=== PATIENT | female | born 1960 | race Caucasian/White ===

== ENCOUNTER 2025-02-20 12:01 | Emergency (ER) | payer BC, SELFPAY ==
[2025-02-20 12:20] VITALS: BP 166/81; PULSE 100; RESP 18; TEMP 36.9; O2SAT 100
--- NOTE | 2025-02-20 13:47 | ED.GENADULT ---
HPI - General Adult General Chief complaint: Upper Respiratory Infection Stated complaint: sore throat Time Seen by Provider: 02/20/25 13:36 Source: patient and RN notes reviewed Mode of arrival: ambulatory Limitations: no limitations History of Present Illness HPI narrative: 64-year-old female patient presents today complaining of white coating on her tongue and burning in her throat for the last couple days it. She was recently on to course of cefdinir for a cyst in her neck area and sinusitis. She has no additional complaints. No OTC treatment prior to arrival. Related Data Home Medications ?Medication ?Instructions ?Recorded ?Confirmed ?Last Taken ?Type ipratropium bromide 0.02 % 02/20/25 Unknown History solution for inhalation lorazepam 0.5 mg tablet mg 02/20/25 Unknown History nifedipine 30 mg tablet,extended mg PO 02/20/25 Unknown History release 24 hr omeprazole 40 mg capsule,delayed mg 02/20/25 Unknown History release simvastatin 10 mg tablet mg 02/20/25 Unknown History Allergies Allergy/AdvReac Type Severity Reaction Status Date / Time lisinopril Allergy Unknown Verified 02/20/25 12:24 Sulfa (Sulfonamide Allergy unknown Verified 02/20/25 12:24 Antibiotics) PMFSH Comments At time of signature, I have reviewed and agree with nursing past medical, surgical, social and family history unless otherwise noted. Please see nursing chart for further information. There is no relevant family history pertinent to the presenting complaint Exam Narrative: GENERAL: Well-appearing, well-nourished, and in no acute distress. HEAD: Normocephalic, atraumatic. EYES: EOMI. No redness or drainage. Conjunctivae normal. ENT: Mucous membranes pink and moist. Throat normal. Uvula midline. Tongue has a thin coating of white a on mildly erythematous base. No white lesions to the inner cheeks or palate. NECK: Normal AROM. Supple. No lymphadenopathy. CHEST: No respiratory distress. EXTREMITIES: Normal range of motion. No edema. SKIN: Warm, dry, no rash. Capillary refill normal. Normal skin turgor. NEURO: No focal deficits. Alert and oriented x3. Gait steady. PSYCH: Normal affect. No signs of depression or anxiety. Course Course Level of Care: Express Care Visit Vital Signs Vital signs: Vital Signs Temperature 98.5 F 02/20/25 12:20 Pulse Rate 100 02/20/25 12:20 Respiratory Rate 18 02/20/25 12:20 Blood Pressure 166/81 H 02/20/25 12:20 Pulse Oximetry 100 02/20/25 12:20 Oxygen Delivery Room Air 02/20/25 12:20 Temperature 98.5 F 02/20/25 12:20 Pulse Rate 100 02/20/25 12:20 Respiratory Rate 18 02/20/25 12:20 Blood Pressure 166/81 H 02/20/25 12:20 Pulse Oximetry 100 02/20/25 12:20 Oxygen Delivery Room Air 02/20/25 12:20 Reviewed Medical Decision Making MDM Narrative Medical decision making narrative: 64-year-old female patient presents today complaining of white coating on her tongue and burning in her throat for the last couple days it. She was recently on to course of cefdinir for a cyst in her neck area and sinusitis. She has no additional complaints. No OTC treatment prior to arrival. Upon exam, patient has a thin coating of white on her tongue on a mildly erythematous base. Will treat with nystatin for thrush. Patient agrees with plan. Vital signs stable. Anticipatory guidance given. Differential Diagnosis Differential Diagnosis: Thrush, leukoplakia, strep throat Vital Signs Vital Signs: Vital Signs Temperature 98.5 F 02/20/25 12:20 Pulse Rate 100 02/20/25 12:20 Respiratory Rate 18 02/20/25 12:20 Blood Pressure 166/81 H 02/20/25 12:20 Pulse Oximetry 100 02/20/25 12:20 Oxygen Delivery Room Air 02/20/25 12:20 Temperature 98.5 F 02/20/25 12:20 Pulse Rate 100 02/20/25 12:20 Respiratory Rate 18 02/20/25 12:20 Blood Pressure 166/81 H 02/20/25 12:20 Pulse Oximetry 100 02/20/25 12:20 Oxygen Delivery Room Air 02/20/25 12:20 Critical Care Time Critical Care Time Critical Care Time: No Discharge Plan Discharge Clinical Impression: Oral thrush Patient Disposition: Home Condition: Stable Instructions: Oral Candidiasis (ED) Additional Instructions: Please use the nystatin as directed. Follow-up with your PCP with any additional concerns. Patient Language: Bahamian Prescriptions: New nystatin 100,000 unit/mL suspension 5 ml PO QID 10 Days Qty: 200 0RF Rx Instructions: swish and swallow No Action nifedipine 30 mg tablet extended release 24hr PO simvastatin 10 mg tablet omeprazole 40 mg capsule,delayed release(DR/EC) lorazepam 0.5 mg tablet ipratropium bromide 0.02 % solution Follow-up/Referrals: UNKNOWN,DOCTOR [Primary Care Provider] Time of Disposition: 13:52
--- OUTSIDE RECORDS SUMMARY | 2025-02-20 13:56 | XMS_ITS | Encounter Summary ---
Author Organization [facility] Address [address] [facility] [facility] [place] [address] Phone Care Team Providers Care Planner Chief Name Role Phone Isabella Taylor MD Primary Care Provider [phone] Encounter Details Date Type Department Care Team (Late st Contact Info) Description 12/22/2024 Results Follow-Up [address] [place], [place] [phone] Isabella Taylor MD [address] [place] [address] [facility] IMAGING RESULTS Social History Tobacco Use Types Packs/Day Years Used Date Smoking Tobacco: Every Day Cigarettes Smokeless Tobacco: Never Alcohol Use Standard Drinks/Week Comments Never 0 (1 standard drink = 0.6 oz pur e alcohol) [facility] Utilities Answer Date Recorded In the past 12 months has [employer], gas, oil, or water [employer] threatened to shut off services in your home? No 05/02/2024 Social Connection and Isolation Panel Answer Date Recorded In a typical week, how many times do you talk on the phone with family, friends, or neighbors? More than three times a week 05/02/2024 How often do you get togethe r with friends or relatives? Never 05/02/2024 Attends Bahai Services Not on file 05/02 Do you belong to any clubs o r organizations such as restoration groups, unions, fraternal or athletic groups, or school groups? No 05/02/2024 How often do you attend meet ings of the clubs or organizations you belong to? Never 05/02/2024 Are you , , di vorced, , never , or living with a partner? 05/02/2024 AUDIT-C Answer Date Recorded Q1: How often do you have a drink containing alcohol? Never 05/02/2024 Q2: How many drinks containi ng alcohol do you have on a typical day when you are drinking? Patient does not drink Q3: How often do you have si x or more drinks on one occasion? Never 05/02/2024 Overall Financial Resource Strain (CARDIA) Answe r Date Recorded How hard is it for you to pa y for the very basics like food, housing, medical care, and heating? Somewhat hard 05/02/2024 PHQ-2 Answer Date Recorded Total Score - Questions 1-9 0 06/2024 [facility] of Occupat ional [facility] - Occupational Stress Questionnaire Answer Date Recorded Do you feel stress - tense, restless, nervous, or anxious, or unable to sleep at night because your mind is troubled all the time - these days? To some extent 05/02/2024 Exercise Vital Sign Answer Date Recorde d On average, how many days pe r week do you engage in moderate to strenuous exercise (like a brisk walk)? 0 days 05/02/2024 On average, how many minutes do you engage in exercise at this level? 0 min 05/02/2024 Hunger Vital Sign Answer Date Recorded Within the past 12 months, y ou worried that your food would run out before you got the money to buy more. Sometimes true Within the past 12 months, t he food you bought just didn't last and you didn't have money to get more. Sometimes true 05/2024 PRAPARE - Transportation Answer Date Re corded In the past 12 months, has l ack of transportation kept you from medical appointments or from getting medications? No 05/2024 In the past 12 months, has l ack of transportation kept you from meetings, work, or from getting things needed for daily living? No 05/02/2024 Housing Stability Vital Sign Answer [place]am [place] Recorded In the last 12 months, was t here a time when you were not able to pay the mortgage or rent on time? No 05/02/2024 Number of Times Moved in the Last Year Not on fi le 05/02/2024 At any time in the past 12 m [facility], were you homeless or living in a correction (including now)? No 05/02/2024 Comments No Sex and Gender Information Value Date Recorded Sex Assigned at Female 04/20/2024 3:40 PM GREY ROLL WORKER Legal Sex Female 10:47 AM CDT Gender Identity Female 12/06/2024 2:59 PM CDT Sexual Orientation Not on file documented as of this encounter Plan of Treatment Upcoming Encounters Date Type Department Care Team (Late st Contact Info) Description 05/04/2025 1:00 PM GREY ROLL WORKER Office Visit [facility] [address] [place], [place] [phone] Isabella Taylor MD [address] [place], [place] documented as of this encounter Visit Diagnoses Not on filedocumented in this encounter Additional Health Concerns Assessment Noted Time PHQ-9 Depression Total Score: 0 12/02/19 25 2:00 PM CDT documented as of this encounter Care Teams Planner Chief Relationship Specialty Start Date End Date Isabella Taylor MD [address] [address] [place], [place] PCP - General Emergency Medicine 09/17/23 documented as of this encounter
--- OUTSIDE RECORDS SUMMARY | 2025-02-20 13:56 | XMS_ITS | Clinical Summary ---
Author Organization [facility] Address [address] [place] [address] Care Team Providers Care Elevated Guard Name Role Phone Stevie Desouza MD Unavailable [phone] Isabella Taylor MD Primary Care Provider [phone] Allergies Active Allergy Reactions Criticality Noted Date Comments Losartan Rash Medium 12/09/2022 Prednisone Anxiety Low 12/01/2021 Sulfa (Sulfonamide Antibiotics) Swelling Medium 06/2021 Medications LORazepam (ATIVAN) 0.5 mg tablet Take 1 tablet (0.5 mg total) by mouth every 6 (six) hours as needed for anxiety Active losartan-hydroC HLOROthiazide (HYZAAR) 50-12.5 mg per tablet Take 1 tablet by mouth daily Active sertraline (ZOLOFT) 100 mg tablet Take 1 tablet (100 mg total) by mouth daily 2 Active albuterol HFA (PROVENTIL HFA,VENTOLIN HFA,PROAIR HFA) 90 mcg/actuation inhaler Inhale 2 puffs every 6 (six) hours as needed Active calcium carbonate (TUMS) 1,250 mg (500 mg elemental) chewable tablet Take 1 tablet (1,250 mg total) by mouth daily Active meclizine (ANTIVERT) 25 mg tablet 3 Active nystatin cream APPLY TOPICALLY TO THE AFFECTED AREA TWICE DAILY NEEDED 3 Active Nystop powder 3 Active simvastatin (ZOCOR) 10 mg tablet Take 1 tablet (10 mg total) by mouth daily 3 Active carvediloL (COREG) 3.125 mg tablet Take 1 tablet (3.125 mg total) by mouth 2 (two) times a day 3 Active hydroCHLOROthia zide (HYDRODIURIL) 25 mg tablet Take 1 tablet (25 mg total) by mouth every morning 3 Active Active Problems Problem Noted Date Diagnosed Date Finger pain, left 12/09/2022 Chronic pain of both knees 07/12/2022 Lumbar radiculopathy 06/07/2022 Sacroiliitis 05/03/2022 Spondylosis of lumbar region without myelopathy or radiculopathy 01/29/2022 Low back pain 01/29/2022 Amputation, finger, 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 Overview (12/01/2021): Added automatically from request for surgery [id number] Open displaced fracture of p roximal phalanx of left little finger, initial encounter 12/01/2021 PTSD (post-traumatic stress disorder) 09/16/2021 Depression 09/11/2021 Anxiety 09/04/2021 Immunizations Immunization Administration Dates Next Due Influenza, Trivalent, IM (MDV) 12/30/2012 Pneumococcal Polysaccharide PPV23 12/30/2012 Tdap 12/01/2021 Surgical History Surgery Date Site/Laterality Comments FINGER SURGERY 5th finger reattachment and fracture CHOLECYSTECTOMY TONSILLECTOMY GANGLION CYST EXCISION Right GLAUCOMA SURGERY Bilateral Medical History Medical History Date Comments Hypertension GERD (gastroesophageal reflux disease) Mid back pain Low back pain Sleep apnea Anxiety Left knee pain Right hip pain Arthritis Glaucoma Low back pain Family History Medical History Relation Name Comments Cancer Father COPD Mother Diabetes Mother Hypertension Mother Lung disease Mother Relation Name Status Comments Father Mother Social History Tobacco Use Types Packs/Day Years Used Date Smoking Tobacco: Every Day Cigarettes 1 40 Smokeless Tobacco: Never Tobacco Cessation:Ready to Q uit: Not Asked; Counseling Given: Not Answered Comments:Smoking cessation information given Alcohol Use Standard Drinks/Week Comments Not Currently 0 (1 standard drink = 0.6 oz pur e alcohol) Social Connection and Isolation Panel Answer Date Recorded In a typical week, how many times do you talk on the phone with family, friends, or neighbors? Once a week 07/23/2022 How often do you get together with friends or re latives? Never 07/23/2022 How often do you attend jain or sikhism serv ices? Never 07/23/2022 Active Member of Clubs or Organizations Not on f ile 07/23/2022 How often do you attend meet ings of the clubs or organizations you belong to? Never 07/23/2022 Are you , , di vorced, , never , or living with a partner? 07/23/2022 AUDIT-C Answer Date Recorded Q1: How often do you have a drink containing alcohol? Never 07/11/2022 Q2: How many drinks containi ng alcohol do you have on a typical day when you are drinking? Patient does not drink Q3: How often do you have si x or more drinks on one occasion? Never 07/11/2022 Overall Financial Resource Strain (CARDIA) Answe r Date Recorded How hard is it for you to pa y for the very basics like food, housing, medical care, and heating? Very hard 07/23/2022 Hunger Vital Sign Answer Date Recorded Within the past 12 months, y ou worried that your food would run out before you got the money to buy more. Often true 07/24/19 23 Within the past 12 months, t he food you bought just didn't last and you didn't have money to get more. Often true 07/23/2022 PRAPARE - Transportation Answer Date Re corded In the past 12 months, has l ack of transportation kept you from medical appointments or from getting medications? Yes 06/29 In the past 12 months, has l ack of transportation kept you from meetings, work, or from getting things needed for daily living? Yes 07/23/2022 Housing Stability Vital Sign Answer Rustam e Recorded In the last 12 months, was t here a time when you were not able to pay the mortgage or rent on time? Yes 07/23/2022 In the last 12 months, how many places have you lived? 3 07/23/2022 In the last 12 months, was t here a time when you did not have a steady place to sleep or slept in a nursing home (including now)? Yes 07/23/2022 Comments No Sex and Gender Information Value Date Recorded Sex Assigned at Not on file Legal Sex Female 6:28 PM CDT Gender Identity Not on file Sexual Orientation Not on file Last Filed Vital Signs Vital Sign Reading Time Taken Comments Blood Pressure 141/72 07/11/2022 3:03 PM CDT Pulse 90 07/11/2022 3:01 PM CDT Temperature 36.6 C (97.8 F) 07/11/2022 1:35 PM CDT Respiratory Rate 18 07/11/2022 3:01 PM CDT Oxygen Saturation 100% 07/11/2022 3:01 PM CDT Inhaled Oxygen Concentration - - Weight 72.6 kg (160 lb) 07/11/2022 1:35 PM CDT Height 170.2 cm (5' 7) 07/11/2022 1:35 PM CDT Body Mass Index 25.06 07/11/2022 1:35 PM CDT Plan of Treatment Health Maintenance Due Date Last Done Comments Breast Cancer Screening-Mammogram 1961 Cervical Cancer Screening 1961 Colon Cancer Screening-Colonoscopy 1961 Depression Screening 1961 Hepatitis C Screening 1961 Hepatitis B Screening 09/28/1979 Regular Well Visit/Exam 18-64 09/28/1979 Zoster Vaccine (1 of 2) 09/28/2011 Pneumococcal vaccine <65 (2 of 2 - PCV) 12/30/2013 1 Influenza Vaccine (#1) 2024 12/30/2012 DTaP/Tdap/Td Vaccine (2 - Td or Tdap) 12/02/203106/2021 Goals Goal Patient Goal Type Associated Problems Recent Progress Patient-Stated? Author CCM Chronic Pain Care Plan Chronic Care Management Improving( 1:39 PM CDT) No Ev Dominguez, RN Note: Problem: Chronic Pain Goals: 1. Minimize further functional decline 2. Maximize quality of life 3. Control pain Strategies: - Activity/exercise program recommendation - Conservative stepwise pain medicine strategy with multi-disciplinary approach - Recommend healthy lifestyle strategies and compensatory methods as needed Medical Devices Implanted Type Area Bench Carpenter Device Identifier Shelf Expiration Date Model / Serial / Lot [employer] Chio .035in 4in [place] Both Ends Orthopedic Wire [id number] - [id number] Implanted:Qty: 1 on 12/02/2021 by Stevie Hutchison MD at [facility] Left: Little Finger [employer] [id number] / / [employer] K Wire Fix [place] Bth End Ss [id number] [id number] - [id number] Implanted:Qty: 1 on 12/02/2021 by Stevie Hutchison MD at [facility] Left: [place]inger [employer] DUP [id number] / / [employer] Chio .035in 4in [place] Both Ends Orthopedic Wire 1600-435ns - [id number] Implanted:Qty: 1 on 12/02/2021 by Stevie Hutchison MD at [facility] Left: Little Finger [employer] [id number] / / Insurance [facility] Advance Directives For more information, please contact: [phone] * Full Code (Latest Code Status on File) Date Activated Date Inactivated Comments 12/02/2021 8:00 AM 12/02/2021 8:04 PM Care Teams Elevated Guard Relationship Specialty Start Date End Date Isabella Taylor MD [address] [place] [address] PCP - General Family Practice 12/12/21 Stevie Desouza MD Referring Physician Orthopedic Surgery 12/02/21
--- OUTSIDE RECORDS SUMMARY | 2025-02-20 13:56 | XMS_ITS | Encounter Summary ---
Author Organization [facility] Address [address] [facility] [address] Phone Care Team Providers Care Greenkeeper Name Role Phone Isabella Taylor MD Primary Care Provider [phone] Reason for Visit * Reason Comments Medication Refill Encounter Details Date Type Department Care Team (Late st Contact Info) Description 12/30/[address] [place], [place] [phone] Isabella Taylor MD [address] [place] [address] Medication Refill Social History Tobacco Use Types Packs/Day Years Used Date Smoking Tobacco: Every Day Cigarettes Smokeless Tobacco: Never Alcohol Use Standard Drinks/Week Comments Never 0 (1 standard drink = 0.6 oz pur e alcohol) [facility] Utilities Answer Date Recorded In the past 12 months has [employer] electric, gas, oil, or water [employer] threatened to shut off services in your home? No 05/02/2024 Social Connection and Isolation Panel Answer Date Recorded In a typical week, how many times do you talk on the phone with family, friends, or neighbors? More than three times a week 05/02/2024 How often do you get togethe r with friends or relatives? Never 05/02/2024 Attends Worship Services Not on file 05/02 Do you belong to any clubs o r organizations such as denominational groups, unions, fraternal or athletic groups, or [...] Total Score - Questions 1-9 0 06/2024 [facility] of Occupat ional [facility] - Occupational Stress Questionnaire Answer Date Recorded [...] any time in the past 12 m [facility], were you homeless or living in a halfway (including now)? No 05/02/2024 Comments No Sex and Gender Information Value Date Recorded Sex Assigned at Female 04/20/2024 3:40 PM JOINERY SETTER OUT Legal Sex Female 10:47 AM CDT Gender Identity Female 12/06/2024 2:59 PM CDT Sexual Orientation Not on file documented as of this encounter Miscellaneous Notes * Telephone Encounter - Isabella Taylor MD - 01/03/2025 1:08 [address] CDT [address] her CT chest and neck approved & has she been scheduled? * Telephone Encounter - Isabella Taylor MD - 01/03/2025 1:07 PM CDT Lorazepam refill sent. documented in this encounter Plan of Treatment Upcoming Encounters Date Type Department Care Team (Late st Contact Info) Description 05/04/2025 1:00 PM JOINERY SETTER OUT Office Visit [facility] [address] [place], [place] [phone] Isabella Taylor MD [address] [place], [place] documented as of this encounter Visit Diagnoses Diagnosis Generalized anxiety disorder documented in this encounter Additional Health Concerns Assessment Noted Time PHQ-9 Depression Total Score: 0 12/02/19 25 2:00 PM CDT documented as of this encounter Care Teams Greenkeeper Relationship Specialty Start Date End Date Isabella Taylor MD [address] [place] [phone] PCP - General Emergency Medicine 09/17/23 documented as of this encounter
--- OUTSIDE RECORDS SUMMARY | 2025-02-20 13:56 | XMS_ITS | Clinical Summary ---
Author Organization [facility] Address [address] [place] [address] Phone Care Team Providers Care Fish Hatchery Superintendent Name Role Phone Isabella Taylor MD Primary Care Provider [phone] Allergies Active Allergy Reactions Criticality Noted Date Comments Atenolol Other (see Comments) 03/28/2024 Abdominal pain Chlorthalidone Other (see Comments) 03/28/2024 Dehydration, syncope Corticosteroids Anxiety,Unknown Low 09/02/2021 ( ) Hydralazine Vomiting 03/28/2024 Lisinopril Swelling 03/28/2024 Losartan Itching,Rash,Swelli ng Medium 12/09/2022 Metoprolol Nausea,Vomiting 03/28/2024 Other-Environmental Allergen (Not Found In Search) Other (see Comments) 11/01/2024 Glucocorticoid Spironolactone Unknown 03/28/2024 Sulfa Antibiotics Swelling Medium 12/01/2021 Sulfamethoxazole-Trimetho prim Unknown 03/28/2024 Medications ketoconazole (NIZORAL) 2 % Cream Apply. Apply 1 to 2 times daily to the affected area of ears until clear. Active Latanoprost PF (Iyuzeh) 0.005 % Solution Active meclizine (ANTIVERT) 25 MG Tablet Take 25 mg by mouth 3 times daily as needed. 06/06/19 Active nystatin (MYCOSTATIN) 741383 UNIT/GM Cream Apply 2 times daily as needed. Apply topically to the affected area twice daily as needed 03/07/20 23 Active traMADol (ULTRAM) 50 MG Tablet Take 50 mg by mouth. Take 1 tablet 4 times a day by oral route as needed 05/26/19 24 Active tretinoin (RETIN-A) 0.05 % Cream Apply. Active famotidine (PEPCID) 20 MG TabletIndications :Gastroesophageal reflux disease without esophagitis Take 1 Tablet by mouth 2 times daily. 180 Tablet 1 10/19/19 25 Active ProAir HFA 108 (90 Base) MCG/ACT Aerosol SolutionIndicatio ns:Moderate persistent reactive airway disease without complication take 2 Puffs by inhalation every 4 hours as needed for Wheezing or Cough. Every 4 to 6 hours by inhalation route as needed. 18 g 5 11/02/19 25 Active ipratropium (ATROVENT) 0.02 % SolutionIndicatio ns:Moderate persistent reactive airway disease without complication 2.5 mL by Nebulization route every 6 hours as needed for Wheezing. 125 mL 1 11/02/19 25 Active nystatin 251305 UNIT/GM PowderIndications :Candidiasis of skin Apply 3 times daily as needed for Other. 60 g 5 11/02/19 25 Active verapamil (CALAN-SR) 120 MG Tablet Controlled ReleaseIndication s:Essential hypertension Take 2 Tablets by mouth daily. For Blood Pressure 180 Tablet 1 11/08/19 25 Active Additional Information Patient taking differently: 120 mgOral DAILY, For Blood Pressure*per pt went back to taking 120 mg d/t felt B/P dropped to low. 01/24/25cv, Reported on 01/24/2025 rosuvastatin (CRESTOR) 5 MG TabletIndications :Stenosis of right carotid artery,Mixed hyperlipidemia Take 1 Tablet by mouth nightly. 30 Tablet 12/02/19 25 Active LORazepam (ATIVAN) 0.5 MG TabletIndications :Generalized anxiety disorder TAKE 1 TABLET BY MOUTH EVERY DAY NEEDED FOR ANXIETY 30 Tablet 01/04/20 25 Active omeprazole (PriLOSEC) 40 MG CAPSULE DELAYED RELEASE Take 40 mg by mouth daily as needed. 025 Discontinu ed(Med List Clean Up) cefdinir (OMNICEF) 300 MG CapsuleIndication s:Other non-recurrent acute nonsuppurative otitis media of left ear Take 1 Capsule by mouth 2 times daily for 10 days. 20 Capsule 01/25/20 25 025 Discontinu ed(Reorder ) cefdinir (OMNICEF) 300 MG CapsuleIndication s:Other non-recurrent acute nonsuppurative otitis media of left ear Take 1 Capsule by mouth 2 times daily for 10 days. 20 Capsule 02/03/20 25 025 Active Problems Problem Noted Date Diagnosed Date Body mass index (BMI) 29.0-29.9, adult 5 Stenosis of right carotid artery 12/02/2024 Assessment & Plan (12/02/2024 1:28 PM CDT): - near 50% stenosis SELENA per doppler 11/15/24. - Rx rosuvastatin 5 mg qd #30 (trial). - advised baby ASA daily. - advised smoking cessation. - maintain cholesterol & bp control. - repeat carotid doppler in 1 yr. Mass of soft tissue of chest 12/02/2024 Assessment & Plan (12/02/2024 1:25 PM CDT): - order CXR and mammogram (due 09/21). - will likely need CT chest with contrast. - CBC 11/04/24 reviewed (polycythemia, otherwise wnl). Low back pain 10/19/2024 Trigger little finger of left hand 05/02/2024 Assessment & Plan (05/02/2024 2:25 PM MICA SPLITTER): - refer to hand surgeon in/near [place], [place]. Bunion of great toe of right foot 05/02/2024 Assessment & Plan (05/02/2024 2:26 PM MICA SPLITTER): - refer to podiatry in/near [place], [place]. Vitamin D deficiency 05/02/2024 B12 deficiency 05/02/2024 Assessment & Plan (12/02/2024 1:47 PM CDT): - level 319 11/04/24. - advised to start B complex supplement, which she has not started yet (but plans on starting soon). Obesity 05/02/2024 Assessment & Plan (12/02/2024 1:47 PM CDT): - BMI 30.9. - Reinforced healthy lifestyle modifications including healthy eating, increased physical activity and proper sleep. Goal BMI 18.5-24.9. Assessment & Plan (05/02/2024 2:28 PM MICA SPLITTER): - BMI 31.4. - Reinforced healthy lifestyle modifications including healthy eating, increased physical activity and proper sleep. Goal BMI 18.5-24.9. Attention deficit hyperactivity disorder 024 Essential hypertension 03/28/2024 Assessment & Plan (12/02/2024 1:49 PM CDT): - above goal in office. - labile bp in clinical environment. - home readings reassuring, 120s-130s/70s. - intolerant of multiple antihypertensives. - continue verapamil ER 240 mg qd. - continue monitoring bp regularly (several times/week at least). Assessment & Plan (05/02/2024 2:28 PM MICA SPLITTER): - above goal. - increase verapamil XR from 120 to 240 mg qd. - check bp daily, keep log. Call office to review log in 2 wks. - check labs. Hyperlipidemia 03/28/2024 Assessment & Plan (12/02/2024 1:30 PM CDT): - chol 236, TG 225, HDL 38, LDL 153, chol-hdl 6.2. - historically has declined statin therapy, but agreeable to try given recent carotid findings. - Rx rosuvastatin 5 mg qhs #30. - Advised low cholesterol (<200mg/d)/high fiber (>25g/d) diet and moderate- intensity exercise x >30 min 5 days/week. Chronic back pain 03/28/2024 Overview (03/28/2024): L4/5 paracentral/foraminal disc protrusion, lumbar stenosis, spondylolisthesis Assessment & Plan (12/02/2024 1:44 PM CDT): - DDD with L4/5 paracentral/foraminal disc protrusion, lumbar stenosis, spondylolisthesis, spondylosis & scoliosis. - h/o LESI x 3 in past. - refer to pain mgmt. Chronic neck pain 03/28/2024 Assessment & Plan (12/02/2024 1:48 PM CDT): - continue PT at [facility] in [place]. - refer to pain mgmt. Spondylolisthesis of lumbar region 03/28/2024 Overview (03/28/2024): L1 on L2 Reactive airway disease 03/28/2024 Spinal stenosis of lumbar region 03/28/2024 Tobacco user 03/28/2024 Overview (03/28/2024): 1/2 ppd x >40 yrs Assessment & Plan (12/02/2024 1:48 PM CDT): - 1/2 ppd x 40+ yrs. - Encouraged cessation. Discussed health risks associated with smoking including, but not limited to, cardiovascular dz, pulm dz and increased risk of cancer. 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 - refer to sleep medicine. Glaucoma 05/26/2015 Resolved Problems Problem Noted Date Diagnosed Date Resolved Date Overweight with body mass in dex (BMI) 25.0-29.9 03/28/2024 05/02/2024 Encounters Date Type Department Care Team Description 02/15/2025 Telephone [facility] [address] [place], [place] [phone] Isabella Taylor MD 02/10/2025 Telephone [facility] [address] [place] [place] [phone] Isabella Taylor MD 02/02/2025 Refill [facility] [address] [place], [place] [phone] Isabella Taylor MD Medication Refill 01/24/2025 10:00 AM CDT Office Visit [facility] [address] [place], [place] [phone] Isabella Taylor MD Other non-recurrent acute nonsuppurative otitis media of left ear (Primary Dx) 01/24/2025 Travel 01/23/2025 Telephone [facility] [address] [place], [place] [phone] Isabella Taylor MD 12/30/2024 Refill [facility] [address] [place], [place] [phone] Isabella Taylor MD Medication Refill 12/22/2024 Results Follow-Up [facility] [address] [place] [phone] Isabella Taylor MD [facility] IMAGING RESULTS 12/14/2024 Telephone [facility] [address] [place] [phone] sIabella Taylor MD 12/12/2024 Telephone [facility] [address] [place] [phone] Isabella aTylor MD 12/02/2024 [facility] [address] [place] [phone] Isabella Taylor MD 12/01/2024 4:15 PM CDT - 12/01/2024 11:59 PM CDT Hospital Encounter [facility] Diagnostic Radiology [address] [place] [phone] Isabella Taylor MD Discharge Disposition: Discharged to home or Selfcare 12/01/2024 2:30 PM CDT Office Visit [facility] [address] [place] [phone] Isabella Taylor MD Mass of soft tissue of chest (Primary Dx); Stenosis of right carotid artery; Mixed hyperlipidemia; Chronic neck pain; Left cervical radiculopathy; Lumbar radiculopathy; Chronic low back pain, unspecified back pain laterality, unspecified whether sciatica present; Essential hypertension; Tobacco user; Osteoarthritis of spine with radiculopathy, lumbar region; Chronic midline low back pain, unspecified whether sciatica present; B12 deficiency; Class 1 obesity due to excess calories with serious comorbidity and body mass index (BMI) of 30.0 to 30.9 in adult 12/01/2024 Travel 11/29/2024 Telephone [facility] [address] [place] [phone] Isabella Taylor MD from Last 3 Months Immunizations Immunization Administration Dates Next Due Influenza, Seasonal, Injectable, Undefined 12/30 Pneumococcal Vaccine Adult - 23 Valent 10/03/201 3 TDAP Vaccine 12/01/2021 Family History Medical History Relation Name Comments Cancer Father carcinoma of ur inary bladder superficial Arthritis Mother Chronic Obstructive Pulmonar y Disease Mother Diabetes Mother Gout Mother Hypertension Mother other Sister sclerodermatomy ositis Relation Name Status Comments Father Maternal Grandfather Maternal Grandmother Mother Paternal Grandfather Paternal Grandmother Sister Social History Tobacco Use Types Packs/Day Years Used Date Smoking Tobacco: Every Day Cigarettes Smokeless Tobacco: Never Tobacco Cessation:Ready to Q uit: No; Counseling Given: Yes Alcohol Use Standard Drinks/Week Comments Never 0 (1 standard drink = 0.6 oz pur e alcohol) [facility] Utilities Answer Date Recorded In the past 12 months has e electric, gas, oil, or water company threatened to shut off services in your home? No 05/02/2024 Social Connection and Isolation Panel Answer Date Recorded In a typical week, how many times do you talk on the phone with family, friends, or neighbors? More than three times a week 05/02/2024 How often do you get togethe r with friends or relatives? Never 05/02/2024 Attends Islam Services Not on file 05/02 Do you belong to any clubs o r organizations such as mormon groups, unions, fraternal or athletic groups, or [...] Recorded Total Score - Questions 1-9 0 10/2 10/2024 [facility] - Occupational Stress Questionnaire Answer Date Recorded [...] any time in the past 12 m [facility], were you homeless or living in a long-term (including now)? No 05/02/2024 AUDIT-C Answer Date Recorded Q1: How often do you have a drink containing alcohol? Never 01/24/2025 Q2: How many drinks containi ng alcohol do you have on a typical day when you are drinking? Patient does not drink Q3: How often do you have si x or more drinks on one occasion? Never 01/24/2025 Comments No Sex and Gender Information Value Date Recorded Sex Assigned at Female 04/20/2024 3:40 PM MICA SPLITTER Legal Sex Female 10:47 AM CDT Gender Identity Female 12/06/2024 2:59 PM CDT Sexual Orientation Not on file Last Filed Vital Signs Vital Sign Reading Time Taken Comments Blood Pressure 150/78 01/24/2025 10:41 AM CDT Pulse 99 01/24/2025 10:07 AM CDT Temperature 37 C (98.6 F) 01/24/2025 10:07 AM CDT Respiratory Rate 20 01/24/2025 10:0 7 AM CDT Oxygen Saturation 98% 01/24/2025 10: 07 AM CDT Inhaled Oxygen Concentration - - Weight 88.8 kg (195 lb 12.8 oz) 025 10:07 AM CDT Height 170.2 cm (5' 7) 01/24/2025 10:0 7 AM CDT Body Mass Index 30.67 01/24/2025 10:07 AM CDT Plan of Treatment Upcoming Encounters Date Type Department Care Team (Late st Contact Info) Description 05/04/2025 1:00 PM MICA SPLITTER Office Visit [address] [phone] Isabella Taylor MD [address] [place] [address] Health Maintenance Due Date Last Done Comments Hepatitis C Virus (HCV) Screening 1961 HPV/Cotest 09/28/1991 Cologuard 2006 Colonoscopy 2006 Colorectal Cancer Screening 2006 Immunochemical Fecal Occult Blood 2006 Cervical Cancer Screening (CCS) 11/15/2024 Pap Smear 11/15/2024 11/15/2021 Pneumococcal Immunization (50+ years) (2 of 2 - PCV) 11/01/2025 12/30/2012 Postponed fro m 12/30/2013 (Patient Temporarily Declines) Zoster Immunization (1 of 2) 11/01/2025 Postponed from 09/28/2011 (Patient Temporarily Declines) Influenza Immunization (#1) 2025 12/30/2012 Postponed from 11/28/2024 (Patient Temporarily Declines) SARS-COV-2 Immunization (1 - season) 2025 Postponed from 11/28/2024 (Patient Temporarily Declines) Mammogram 12/08/2025 12/08/2024, 12/08/2024, 09/08/2023, Additional history exists Td Immunization Every 10 Years (Adults With 1 Tdap) 12/02/2031 12/01/2021 Respiratory Syncytial Virus (RSV) Immunization (Adult) (1 - 1-dose 75+ series) 2036 Pneumococcal Immunization Combined Discontinued 12/30/2012 TdaP Immunization Discontinued 12/01/2021 Hepatitis B Immunization Aged Out No longer eligible based on patient's age to complete this topic Human Papillomavirus (HPV) Immunization Aged Out No longer eligible based on patient's age to complete this topic Meningococcal Immunization (ACWY) Aged Out No longer eligible based on patient's age to complete this topic Rotavirus Immunization Aged Out No lo nger eligible based on patient's age to complete this topic Procedures Procedure Name Priority Date/Time Associated Diagnosis Comments XR CHEST 2 VIEWS Routine 12/01/2024 4:25 PM CDT Mass of soft tissue of chest from Last 3 Months Results * XR CHEST 2 VIEWS (12/01/2024 4:25 PM CDT) Anatomical Region Laterality Modality Chest N/A Computed Radiogr aphy Narrative 12/01/2024 4:57 PM CDT XR CHEST 2 VIEWS CLINICAL HISTORY: Other specified soft tissue disorders COMPARISON: None TECHNIQUE: Frontal and lateral view of the chest was obtained FINDINGS: Lines and Tubes: None Lungs: No focal consolidation. 9 cm calcified granuloma left upper lobe.m Pleura: No effusion. No pneumothorax. Cardiomediastinal contours: Unremarkable Bones: No acute osseous abnormality. IMPRESSION: No acute cardiopulmonary disease. SPLITTER Procedure Note Frankie Orantes MD - 12/01/2024 XR CHEST 2 VIEWS CLINICAL HISTORY: Other specified soft tissue disorders COMPARISON: None TECHNIQUE: Frontal and lateral view of the chest was obtained FINDINGS: Lines and Tubes: None Lungs: No focal consolidation. 9 cm calcified granuloma left upperlobe.m Pleura: No effusion. No pneumothorax. Cardiomediastinal contours: Unremarkable Bones: No acute osseous abnormality. IMPRESSION: No acute cardiopulmonary disease. SPLITTER Isabella Taylor MD IMG DIAGNOSTIC ORDERABLES F inal Result from Last 3 Months Insurance MEDICAID [employer] MEDICAID [place] Advance Directives Documents on File Type Date Recorded Patient Dredge Lever Operator Expl anation Other Advance Directive 05/02/2024 2:37 PM POA Advance Care Planning Discussion 03/01/2024 1:17 PM BCBS correspondence Care Teams Fish Hatchery Superintendent Relationship Specialty Start Date End Date Isabella Taylor MD [address] [place] [phone] (work) PCP - General Emergency Medicine 09/17/23
--- OUTSIDE RECORDS SUMMARY | 2025-02-20 13:56 | XMS_ITS | Encounter Summary ---
Author Organization [facility] Address [address] [place] [address] Phone Care Team Providers Care Skiver Welt End Name Role Phone Isabella Taylor MD Primary Care Provider [phone] Encounter Details Date Type Department Care Team (Late st Contact Info) Description 02/15/2025 Telephone [facility] [address] [place], [place] [phone] Isabella Taylor MD [address] [place], [place] Social History Tobacco Use Types Packs/Day Years Used Date Smoking Tobacco: Every Day Cigarettes Smokeless Tobacco: Never Alcohol Use Standard Drinks/Week Comments Never 0 (1 standard drink = 0.6 oz pur e alcohol) [facility] Utilities Answer Date Recorded In the past 12 months has [employer], gas, oil, or water [employer] threatened to shut off services in your [...] any clubs o r organizations such as shinto groups, unions, fraternal or athletic groups, or [...] Recorded Total Score - Questions 1-9 0 12/29 [facility] - [facility]ational Stress Questionnaire Answer Date [...] any time in the past 12 m [facility], were you homeless or living in a retirement (including now)? No 05/02/2024 AUDIT-C Answer Date [...] Sex Assigned at Female 04/20/2024 3:40 PM FRUIT PACKER Legal Sex Female 10:47 AM CDT Gender Identity Female 12/06/2024 2:59 PM CDT Sexual Orientation Not on file documented as of this encounter Miscellaneous Notes * Telephone Encounter - Estephanie Walter LPN - 02/17/2025 10:57 AM FRUIT PACKER Phoned patient informed on provider message verbalized just left the neuro office and is going to go take care of her disabled sister and plans on going to Urgent Care in [place] to be evaluated. Informed will relay on to provider, voiced understanding. T PACKER * Telephone Encounter - Isabella Taylor MD - 02/16/2025 5:27 PM FRUIT PACKER Given recent abx use, she may have thrush, which is why she needs to be seen. Abx will only make worse if thrush. If she is not able to go to urgent care, I will send fluconazole, but I would rather she be evaluated if possible. T PACKER * Telephone Encounter - Estephanie Walter LPN - 02/16/2025 1:58 PM FRUIT PACKER Patient reports still having pain to left ear, not as bad as it was and noticing swelling is comingback, verbalized her throat is still really sore way down the back of throat when swallows and backof neck. Denies any fever, reports waking up sweating. Informed on providers message voiced understanding. Patient requesting results of recent test done, noted in chart under imaging. Informed will relay on to provider to address voiced understanding. T PACKER T PACKER T PACKER * Telephone Encounter - Isabella Taylor MD - 02/16/2025 1:29 PM FRUIT PACKER Pls call pt and get more information - she has already had 2 rounds of antibiotics for sinus infection and is now requesting a 3rd. Can she go to urgent care locally to be evaluated? T PACKER * Telephone Encounter - Jennifer Garrett - 02/15/2025 10:08 AM CST Pt left vm asking if she should get another round of antibiotics until she sees the ENT. Pt stated she thinks she still has an infection because she still has a bit of pain. T PACKER documented in this encounter Plan of Treatment Upcoming Encounters Date Type Department Care Team (Late st Contact Info) Description 05/04/2025 1:00 PM FRUIT PACKER Office Visit [place] [address] [place], [place] [phone] Isabella Taylor MD [address] [address] [place], [place] documented as of this encounter Visit Diagnoses Not on filedocumented in this encounter Additional Health Concerns Assessment Noted Time PHQ-9 Depression Total Score: 0 01/25/20 25 10:00 AM CDT documented as of this encounter Care Teams Skiver Welt End Relationship Specialty Start Date End Date Isabella Taylor MD [address] [place] [phone] PCP - General Emergency Medicine 09/17/23 documented as of this encounter
--- OUTSIDE RECORDS SUMMARY | 2025-02-20 13:56 | XMS_ITS | Encounter Summary ---
Author Organization [facility] Address [address] [place] [address] Phone Care Team Providers Care Screener And Blender Name Role Phone Isabella Taylor MD Primary Care Provider [phone] Encounter Details Date Type Department Care Team (Late st Contact Info) Description 07/05/[address] [facility] [address] [place], [place] [phone] Isabella Taylor MD [address] [place], [place] Social History Tobacco Use Types Packs/Day Years Used Date Smoking Tobacco: Every Day Cigarettes Smokeless Tobacco: Never Alcohol Use Standard Drinks/Week Comments Never 0 (1 standard drink = 0.6 oz pur e alcohol) [facility] Utilities Answer Date Recorded In the past 12 months has [employer] gas, oil, or water fypio threatened to shut off services in your home? No 05/02/2024 Social Connection and Isolation Panel Answer Date Recorded In a typical week, how many times do you talk on the phone with family, friends, or neighbors? More than three times a week 05/02/2024 How often do you get togethe r with friends or relatives? Never 05/02/2024 Attends Spiritism Services Not on file 05/02 Do you belong to any clubs o r organizations such as cheondoism groups, unions, fraternal or athletic groups, or [...] Recorded Total Score - Questions 1-9 0 05/2024 [facility] - Occupational Stress Questionnaire Answer Date [...] any time in the past 12 m [facility], were you homeless or living in a intermediate (including now)? No 05/02/2024 Comments No Sex and Gender Information Value Date Recorded Sex Assigned at Female 04/20/2024 3:40 PM CITY PLANNER Legal Sex Female 10:47 AM CDT Gender Identity Female 12/06/2024 2:59 PM CDT Sexual Orientation Not on file documented as of this encounter Miscellaneous Notes * Telephone Encounter - Estephanie Walter LPN - 07/05/2024 4:48 PM CDT Phoned patient informed on Dr Taylor's new orders voiced understanding. * Telephone Encounter - Isabella Taylor MD - 07/05/2024 4:18 PM CDT There are several muscle relaxants we can try. Thus far, she has tried cyclobenzaprine and orphenadrine. I'm going to send tizanidine for her. Unfortunately, a lot of muscle relaxants have sedation and dizziness as a side effect, so advise caution. Also advise she try topical magnesium - they make l otions and oils. Apply to affected areas. Her pharmacy likely carries. * Telephone Encounter - Tania Alvarado LPN - 07/05/2024 2:32 PM CDT Phoned patient to talk about referral and she wanted to let you know that she is starting to have muscle spasms again and stated she uses a chair that has the roller balls in it to try and help her and rolls tennis balls on her feet. She also stated that last time it took 1 week for them to calm down. She also states that she will start getting them worse in the summer. She stated that the Cyclobenzaprine you gave her for them did not work and made her dizzy. She is wanting to know if there is something else she can take for them? She states that if there is nothing else she can take then PT is the only other option that seems to help her and if that is the way she needs to go then she willprobably need a new referral for that. documented in this encounter Plan of Treatment Upcoming Encounters Date Type Department Care Team (Late st Contact Info) Description 05/04/2025 1:00 PM CITY PLANNER Office Visit [facility] [address] [place], [place] [phone] Isabella Taylor MD [address] [place], [place] documented as of this encounter Visit Diagnoses Not on filedocumented in this encounter Additional Health Concerns Assessment Noted Time PHQ-9 Depression Total Score: 0 05/02/19 25 1:16 PM CITY PLANNER documented as of this encounter Care Teams Screener And Blender Relationship Specialty [place] [address] [place] [address] PCP - General Emergency Medicine 09/17/23 documented as of this encounter
--- OUTSIDE RECORDS SUMMARY | 2025-02-20 13:56 | XMS_ITS | Clinical Summary ---
Author Organization [facility] [employer] Address [address] [place] [address] Care Team Providers Care Baseball Inspector Name Role Phone Isabella Taylor MD Primary Care Provider [phone] Rajni Harris AUTOMATIC QUILLING MACHINE OPERATOR-PINNER PR[employer]ED CIRCUIT BOARDS Unavailable [phone] Rajni Harris AUTOMATIC QUILLING MACHINE OPERATOR-PINNER PR[employer]ED CIRCUIT BOARDS Unavailable [phone] Source Comments [facility],non-owned Affiliates and Associated Physician Practices is amultiple site organization consisting of ambulatory clinics and hospital sitesin [place], [place], [place] and [place]. This disclosure is being madepursuant to the Care Everywhere program and may not contain all information available regarding this patient. Last updated 17.[facility] Allergies Active Allergy Reactions Criticality Noted Date Comments Losartan Itching,Swelling 08/31/2023 Prednisone Unknown 09/02/2021 ( ) Sulfa Drugs Unknown 09/02/2021 ( ) Medications * Be aware that medications may not be up to date on this document. Alwaysverify current medications with the patient. albuterol HFA (PROVENTIL; VENTOLIN; PROAIR) 108 (90 Base) MCG/ACT inhaler Inhale 2 (two) puffs by mouth every 6 hours as needed Active LORazepam (Ativan) 0.5 MG tablet Take 0.5 (one-half) tablet by mouth 2 times daily as needed for Anxiety 14 tablet 2 2 Active hydroCHLOROthia zide (Hydrodiuril) 25 MG tablet Take 1 (one) tablet by mouth once daily Active omeprazole (PriLOSEC) 20 MG capsule Take 1 (one) capsule by mouth daily before breakfast Active Active Problems Problem Noted Date Diagnosed Date PTSD (post-traumatic stress disorder) 09/16/2021 Depression 09/11/2021 Anxiety 09/04/2021 Immunizations Immunization Administration Dates Next Due INFLUENZA VACCINE, TRIV. (AF LURIA, FLUZONE TRIVALENT; 6MO+) (IIV3) 12/30/2012 PNEUMOCOCCAL PPSV23 12/30/2012 Family History Medical History Relation Name Comments Cancer - Other Father Asthma Mother Diabetes; unknown type Mother Hyperlipidemia Mother Hypertension Mother Thyroid Disease Mother Thyroid Disease Sister Relation Name Status Comments Father Mother Sister Social History Tobacco Use Types Packs/Day Years Used Date Smoking Tobacco: Every Day Cigarettes Tobacco Cessation:Ready to Q uit: Not Asked; Counseling Given: Not Answered Alcohol Use Standard Drinks/Week Comments Not Currently 0 (1 standard drink = 0.6 oz pur e alcohol) PHQ-2 Answer Date Recorded Patient Health Questionnaire-2 Score 0 08/31/2023 Comments Unknown Sex and Gender Information Value Date Recorded Sex Assigned at Not on file Legal Sex Female 8:11 AM CDT Gender Identity Not on file Sexual Orientation Not on file Last Filed Vital Signs Vital Sign Reading Time Taken Comments Blood Pressure 129/85 08/31/2023 2:32 PM CDT Pulse 101 08/31/2023 2:21 PM CDT Temperature 36.3 C (97.3 F) 08/31/2023 2:21 PM CDT Respiratory Rate 20 08/31/2023 2:21 PM CDT Oxygen Saturation 95% 08/31/2023 2:21 PM CDT Inhaled Oxygen Concentration - - Weight 86.6 kg (191 lb) 08/31/2023 2:21 PM CDT Height 170.2 cm (5' 7) 08/31/2023 2:21 PM CDT Body Mass Index 29.91 08/31/2023 2:21 PM CDT Plan of Treatment Health Maintenance Due Date Last Done Comments COLOGUARD (AGES 45-75) - COLON CA SCREENING 1961 COLON MONITORING 1961 COLONOSCOPY - COLON CA SCREENING 1961 CT COLONOGRAPHY - COLON CA SCREENING 1961 Colorectal Cancer Screening 1961 FIT - COLON CA SCREENING 1961 FLEX SIG - COLON CA SCREENING 1961 LIPID TESTING 1961 MAMMOGRAM 1961 HIV SCREENING 1976 HEPATITIS C SCREENING 09/23/1979 DTAP/TDAP/TD VACCINES (1 - Tdap) 1980 PAP with HPV 09/28/1991 ZOSTER VACCINE (1 of 2) 09/28/2011 PNEUMOCOCCAL VACCINE 50+ (2 of 2 - PCV) 12/30/2013 12/30/2012 DEPRESSION SCREENING 03/30/2024 08/31/2023, 11/27/2021, 11/25/2021, Additional history exists SCREENING FOR DIABETES 09/02/2024 09/02/2021 Cervical Cancer Screening 11/15/2024 PAP SMEAR 11/15/2024 11/15/2021 COVID-19 VACCINE ( - season) 2024 INFLUENZA VACCINE (#1) 2024 12/30/2012 Respiratory Syncytial Virus (RSV) Vaccine Pt: or over 60 yrs (1 - 1-dose 75+ series) 2036 HEPATITIS B VACCINE Aged Out No longe r eligible based on patient's age to complete this topic HIB VACCINE Aged Out No longer eligi ble based on patient's age to complete this topic HPV VACCINE Aged Out No longer eligi ble based on patient's age to complete this topic MENINGOCOCCAL (Group B) VACCINE SHARED DECISION-MAKING Aged Out No longer eligible based on patient's age to complete this topic MENINGOCOCCAL GROUPS A/C/Y/W VACCINE Aged Out No longer eligible based on patient's age to complete this topic Procedures Procedure Name Priority Date/Time Associated Diagnosis Comments COMPREHENSIVE METABOLIC PANEL STAT 09/02/2021 4:15 PM CDT from Last 3 Months or Most Recently Relevant to Health Maintenance Results * (ABNORMAL) COMPREHENSIVE METABOLIC PANEL (09/02/2021 4:15 PM CDT) Glucose 109(H) 70 - 100 mg/dL 09/02/2021 4:48 PM CDT [facility] ([facility]) BUN 10 7 - 17 mg/dL 09/02/2021 4:48 PM [facility] Creatinine 0.90 0.52 - 1.04 mg/dL 09/02/2021 4:48 PM [facility] Sodium 141 137 - 145 mmol/L 09/02/2021 4:48 PM [facility] Potassium 3.6 3.5 - 5.1 mmol/L 09/02/2021 4:48 PM [facility]) Chloride 107 98 - 107 mmol/L 09/02/2021 4:48 PM [facility]) CO2 25 22 - 30 mmol/L 09/02/2021 4:48 PM [facility]) Bilirubin Total 0.1(L) 0.2 - 1.3 mg/dL 09/02/2021 4:48 PM [facility]) Calcium 9.2 8.4 - 10.2 mg/dL 09/02/2021 4:48 PM [facility]) Protein Total 7.3 6.3 - 8.2 g/dL 09/02/2021 4:48 PM [facility]) Albumin 4.3 3.5 - 5.0 g/dL 09/02/2021 4:48 PM [facility] AST 26 14 - 36 U/L 09/02/2021 4:48 PM [facility]) ALT 23 0 - 35 U/L 09/02/2021 4:48 PM [facility] Alkaline Phosphatase 78 38 - 126 U/L 09/02/2021 4:48 PM [facility]) Globulin Total 3.0 2.3 - 4.2 gm/dL 09/02/2021 4:48 PM [facility]) Albumin/Globulin Ratio 1.4 1.0 - 2.2 Ratio 09/02/2021 4:48 PM [facility]) eGFR >60 >60 mL/min/1.7 3 m2 09/02/2021 4:48 PM [facility]) Blood BLOOD SPECIMEN / Unknown Venipuncture / Unknown 09/02/2021 4:15 PM CDT 09/02/2021 4:19 PM CDT Narrative [facility] ([facility]) - 09/02/2021 4:48 PM CDT It is recommended that for: GFR values greater than 60 mL/min/1.73 sq.meters - no additional renal evaluation is required. GFR values less than 60 mL/min/1.73 sq.meters - complete evaluation for renal disease. GFR values less than 30 mL/min/1.73 sq.meters - consultation with a Marketing Project Lead. us Марина Chun AUTOMATIC QUILLING MACHINE OPERATOR-PINNER PR[employer]ED [employer]AR[employer] LAB - CHEMISTRY ORDER MARLON Final Result [facility] ([facility]) [address] [place] [phone] from Last 3 Months or Most Recently Relevant to Health Maintenance Insurance [place] Care Teams Baseball Inspector Relationship Specialty Start Date End Date Isabella Taylor MD PCP - General Emergency Medicine 08/30/21 Rajni Harris, [employer] [address] [place] [address] Nurse Practitioner Nurse Practitioner Psychiatric Mental Health 09/16/21 Rajni Harris, [employer] [address] [place] [address] Nurse Practitioner Nurse Practitioner Psychiatric Mental Health 11/25/21
--- OUTSIDE RECORDS SUMMARY | 2025-02-20 13:56 | XMS_ITS | Encounter Summary ---
Author Organization [facility] Address [address] [place] [address] Care Team Providers Care University Teacher Name Role Phone Stevie Desouza MD Unavailable [phone] Isabella Taylor MD Primary Care Provider [phone] Reason for Visit * Reason Onset Date Comments Handicap Parking Application 03/26/2022 Encounter Details Date Type Department Care Team (Late st Contact Info) Description 03/26/2022 Telephone [facility] [address] [facility] [address] [place] [address] Rich Zepeda, DO [address] [place], [place] [id number] Handicap Parking Application Social History Tobacco Use Types Packs/Day Years Used Date Smoking Tobacco: Every Day Cigarettes 1 40 Smokeless Tobacco: Never Comments:Smoking cessation i nformation given Alcohol Use Standard Drinks/Week Comments Not Currently 0 (1 standard drink = 0.6 oz pur e alcohol) AUDIT-C Answer Date Recorded Q1: How often do you have a drink containing alcohol? Never 01/28/2022 Q2: How many drinks containi ng alcohol do you have on a typical day when you are drinking? Patient does not drink Q3: How often do you have si x or more drinks on one occasion? Never 01/28/2022 Comments Unknown Sex and Gender Information Value Date Recorded Sex Assigned at Not on file Legal Sex Female 6:28 PM CDT Gender Identity Not on file Sexual Orientation Not on file documented as of this encounter Plan of Treatment Not on file documented as of this encounter Goals Goal Patient Goal Type Associated Problems [...] lifestyle strategies and compensatory methods as needed documented as of this encounter Visit Diagnoses Not on filedocumented in this encounter Care Teams University Teacher Relationship Specialty Start Date End Date Isabella Taylor MD [address] [place] [address] PCP - General Family Practice 12/12/21 Stevie Desouza MD Referring Physician Orthopedic Surgery 12/02/21 documented as of this encounter
--- OUTSIDE RECORDS SUMMARY | 2025-02-20 13:56 | XMS_ITS | Encounter Summary ---
Author Organization [facility] Address [address] [place] [address] Phone Care Team Providers Care Deli Department Manager Name Role Phone Stevie Desouza MD Unavailable [phone] Isabella Taylor MD Primary Care Provider [phone] Encounter Details Date Type Department Care Team (Latest Contact Info) Description 01/03/2022 Orders Only [facility] Scanning, Provider Social History Tobacco Use Types Packs/Day Years Used Date Smoking Tobacco: Every Day Cigarettes 0.1 40 Smokeless Tobacco: Never Alcohol Use Standard Drinks/Week Comments Not Currently 0 (1 standard drink = 0.6 oz pur e alcohol) AUDIT-C Answer Date Recorded Q1: How often do you have a drink containing alc ohol? Never 12/02/2021 Average Number of Drinks Not on file 022 Frequency of Binge Drinking Not on file 07/2021 Comments Unknown Sex and Gender Information Value Date Recorded Sex Assigned at Not on file Legal Sex Female 6:28 PM CDT Gender Identity Not on file Sexual Orientation Not on file documented as of this encounter Plan of Treatment Not on file documented as of this encounter Procedures Procedure Name Priority Date/Time Associated Diagnosis Comments SCAN - RADIOLOGY/IMAGING 01/03/2022 documented in this encounter Results * SCAN - RADIOLOGY/IMAGING (01/03/2022) Anatomical Region Laterality Modality Other us Provider Scanning Edited Result - Final documented in this encounter Visit Diagnoses Not on filedocumented in this encounter Care Teams Deli Department Manager Relationship Specialty Start Date End Date Isabella Taylor MD [address] [place] [address] PCP - General Family Practice 12/12/21 Stevie Desouza MD Referring Physician Orthopedic Surgery 12/02/21 documented as of this encounter
--- OUTSIDE RECORDS SUMMARY | 2025-02-20 13:56 | XMS_ITS | Clinical Summary ---
Author Organization [facility] Address [address] [place] [address] Care Team Providers Care Safe Expert Name Role Phone Miriam Paiz MD Primary Care Provider [phone] Active Problems Problem Noted Date Diagnosed Date Low back pain 10/19/2024 Lumbar radiculopathy 10/19/2024 Encounters Date Type Department Care Team Description 02/06/2025 9:13 AM INFORMATION SYSTEMS PLANNER - 02/06/2025 11:59 PM INFORMATION SYSTEMS PLANNER [place] [address] [place] [address] Miriam Paiz MD Discharge Disposition: Home or Self Care (Routine Discharge) 02/06/2025 Travel 01/11/2025 8:45 AM CDT - 01/11/2025 11:59 PM CDT Hospital Encounter [facility] [address] [place] [address] Sadie Frazier, Miriam Bundy MD Back Pain Discharge Disposition: Home or Self Care (Routine Discharge) 01/11/2025 Travel 01/09/2025 8:00 AM CDT - 01/09/2025 11:59 PM CDT Hospital Encounter [facility] [address] [place] [address] Harlan Sumner, Miriam Bundy MD Back Pain Discharge Disposition: Home or Self Care (Routine Discharge) 01/09/2025 Travel 01/06/2025 1:56 PM CDT - 01/06/2025 11:59 PM CDT Hospital Encounter [facility] [address] [place] [address] Sadie Frazier, Miriam Bundy MD Back Pain Discharge Disposition: Home or Self Care (Routine Discharge) 01/06/2025 Travel 12/30/2024 Travel 12/28/2024 11:15 AM CDT - 12/28/2024 11:59 PM CDT Hospital Encounter [facility] [address] [place] [address] Sadie Frazier, Miriam Bundy MD Back Pain Discharge Disposition: Home or Self Care (Routine Discharge) 12/28/2024 Travel 12/27/2024 12:55 PM CDT - 12/27/2024 11:59 PM CDT Hospital Encounter [facility] Laboratory [address] [place] [phone] Miriam Paiz MD Discharge Disposition: Home or Self Care (Routine Discharge) 12/27/2024 Orders Only [facility] [address] [place] [address] Miriam Paiz MD 12/26/2024 3:07 PM CDT - 12/26/2024 11:59 PM CDT Hospital Encounter [facility] [address] [place] [address] Sadie Frazier, Miriam Bunyd MD Back Pain Discharge Disposition: Home or Self Care (Routine Discharge) 12/26/2024 Travel 12/21/2024 10:23 AM CDT - 12/21/2024 11:59 PM CDT Hospital Encounter [facility] [address] [place] [address] Sadie Frazier, Miriam Bundy MD Back Pain Discharge Disposition: Home or Self Care (Routine Discharge) 12/21/2024 Travel 12/19/2024 1:43 PM CDT - 12/19/2024 11:59 PM CDT Hospital Encounter [facility] [id number] [place] [address] Harlan Sumner, Miriam Bundy MD Back Pain Discharge Disposition: Home or Self Care (Routine Discharge) 12/19/2024 Travel 12/16/2024 10:56 AM CDT - 12/16/2024 11:59 PM CDT Hospital Encounter [facility] [address] [place] [phone] Harlan Sumner, Miriam Bundy MD Back Pain Discharge Disposition: Home or Self Care (Routine Discharge) 12/16/2024 Travel 12/12/2024 9:26 AM CDT - 12/12/2024 11:59 PM CDT Hospital Encounter [facility] [address] [place] [phone] Sadie Frazier, Miriam Bundy MD Back Pain Discharge Disposition: Home or Self Care (Routine Discharge) 12/12/2024 Travel 12/08/2024 1:10 PM CDT - 12/08/2024 11:59 PM CDT Hospital Encounter [facility] Mammography [id number] [place] [address] Miriam Paiz MD Discharge Disposition: Home or Self Care (Routine Discharge) 12/08/2024 Travel 11/21/2024 7:27 AM CDT - 11/21/2024 11:59 PM CDT Hospital Encounter [facility] [address] [place] [address] Harlan Sumner, Miriam Bundy MD Back Pain Discharge Disposition: Home or Self Care (Routine Discharge) 11/21/2024 Travel from Last 3 Months Family History Medical History Relation Comments Breast Cancer Maternal Aunt Relation Status Comments Maternal Aunt Alive Social History Tobacco Use Types Packs/Day Years Used Date Smoking Tobacco: Never Assessed Comments Unknown Sex and Gender Information Value Date Recorded Sex Assigned at Not on file Legal Sex Female 9:37 PM CDT Gender Identity Not on file Sexual Orientation Not on file Plan of Treatment Health Maintenance Due Date Last Done Comments ASCVD Statin 1960 Colorectal Cancer Screening Colonoscopy (10 Years) 1960 Annual Physical 1964 Hepatitis C 09/28/1979 Cervical Cancer Screening Pa p with HPV Testing (Age 30 to 64) Every 5 Years 09/28/1991 Zoster Vaccines (1 of 2) 09/28/2011 Pneumococcal Vaccine: 50+ Ye ars (2 of 2 - PCV) 12/30/2013 12/30/2012 PHQ-2 (Physician [place]) 03/30/2024 Cervical Cancer Screening Pa p Smear (Age 30 to 64) Every 3 Years 11/15/2024 11/15/2021 Cervical Cancer Screening with HPV 11/15/2024 COVID-19 Vaccine (1 - 2024-2 6 season) 2024 Influenza Adult (#1) 2024 12/30/2012 Mammogram Screening 12/08/2026 12/08/2024 DTaP, Tdap and Td Vaccines ( 2 - Td or Tdap) 12/02/2031 12/01/2021 RSV Immunization or 60+ Years (1 - 1-dose 75+ series) 2036 Hepatitis A Vaccines Aged Out No long er eligible based on patient's age to complete this topic Meningococcal B Vaccine Aged Out No l onger eligible based on patient's age to complete this topic Meningococcal Vaccine Aged Out No juliette krista eligible based on patient's age to complete this topic RSV Immunizations Under 20 Months Aged Out No longer eligible based on patient's age to complete this topic Procedures Procedure Name Priority Date/Time Associated Diagnosis Comments CT SOFT TISSUE NECK W CON Routine 02/06/2025 10:10 AM INFORMATION SYSTEMS PLANNER Mass of soft tissue of neck CT CHEST W CON Routine 02/06/2025 10:09 AM INFORMATION SYSTEMS PLANNER Mass of soft tissue of neck HC CREATININE Routine 12/27/2024 1:08 PM CDT Essential hypertension HC BUN Routine 12/27/2024 1:08 PM CDT Essential hypertension MG SCREENING W ASUNCION JOSE ANGEL DIGI Routine 12/08/2024 1:58 PM CDT Encounter for screening mammogram for malignant neoplasm of breast CYTOPATH CERV/VAG THIN LAYER Routine 11/15/2021 12:00 AM CDT from Last 3 Months or Most Recently Relevant to Health Maintenance Results * CT SOFT TISSUE NECK W CON (02/06/2025 10:10 AM INFORMATION SYSTEMS PLANNER) Anatomical Region Laterality Modality Neck Computed Tomogra phy 02/07/2025 2:05 PM INFORMATION SYSTEMS PLANNER Impressions 02/07/2025 2:27 PM INFORMATION SYSTEMS PLANNER IMPRESSION: 1. Nonspecific 1.1 cm well-circumscribed hypodense lesion within the left vallecula, suspicious for the mucus retention cyst. A cystic neoplasm cannot be excluded. Recommend nonurgent ENT consultation and direct visualization. 2. No pathologically enlarged or necrotic cervical lymph nodes. No discrete enhancing neck mass or acute inflammatory changes. The markers denoting the palpable abnormality overlie the external jugular veins. 3. Moderate to severe multilevel degenerative changes of the cervical spine. Referred By: MIRIAM PAIZ Interpreted By: Stevie Robles MD, 02/07/2025 2:05 PM Narrative 02/07/2025 2:27 PM INFORMATION SYSTEMS PLANNER [facility] [address] [place] [address] EXAMINATION: Neck CT with contrast 02/06/2025 INDICATION: Soft tissue swelling, dysphagia TECHNIQUE: Axial CT images of the neck were acquired following administration of 80 mL Isovue 370 contrast intravenously. Sagittal and coronal reformats were constructed. Radiation dose reduction techniques were used. COMPARISON: Cervical radiographs 10/24/2024 FINDINGS:Partially visualized intracranial contents are unremarkable. The orbits and globes are unremarkable. The par mastoid air cells are clear. There is a 1 cm cystic lesion within the right sphenoid sinus. There is straightening of the normal cervical lordosis. There is moderate to severe disc space narrowing and uncovertebral arthropathy and facet arthropathy noted throughout the cervical spine. The parotid and submandibular glands are unremarkable. The thyroid gland is unremarkable The oral cavity are unremarkable. The nasopharynx oropharynx and oropharynx are unremarkable. No prevertebral edema or retropharyngeal fluid collection. There is a smooth the well-circumscribed hypodense lesion within the left side of the vallecula measuring 1.1 x 0.8 x 0.5 cm in the CC, AP and transverse dimensions. No surrounding inflammation. The larynx, trachea and upper esophagus are unremarkable.. Carotid vertebral arteries are opacified. Calcified plaque noted near the carotid bifurcations. The internal jugular veins are well-opacified. No pathologically enlarged or necrotic cervical lymph nodes. No discrete enhancing neck mass, fluid collection or acute inflammatory changes. The markers denoting the palpable abnormalities overlie the external jugular veins. No acute abnormality the visualized lung apices. Procedure Note Stevie Robles MD - 02/07/2025 [facility] [address] [facility] [place] [place] [address] EXAMINATION: Neck CT with contrast 02/06/2025 INDICATION: Soft tissue swelling, dysphagia TECHNIQUE: Axial CT images of the neck were acquired followingadministration of 80 mL Isovue 370 contrast intravenously. Sagittal andcoronal reformats were constructed. Radiation dose reduction techniqueswere used. COMPARISON: Cervical radiographs 10/24/2024 FINDINGS:Partially visualized intracranial contents are unremarkable. Theorbits and globes are unremarkable. The par mastoid air cells are clear.There is a 1 cm cystic lesion within the right sphenoid sinus. There is straightening of the normal cervical lordosis. There is moderateto severe disc space narrowing and uncovertebral arthropathy and facetarthropathy noted throughout the cervical spine. The parotid and submandibular glands are unremarkable. The thyroid glandis unremarkable The oral cavity are unremarkable. The nasopharynx oropharynx andoropharynx are unremarkable. No prevertebral edema or retropharyngealfluid collection. There is a smooth the well-circumscribed hypodense lesion within the leftside of the vallecula measuring 1.1 x 0.8 x 0.5 cm in the CC, AP andtransverse dimensions. No surrounding inflammation. The larynx, trachea and upper esophagus are unremarkable.. Carotidvertebral arteries are opacified. Calcified plaque noted near the carotidbifurcations. The internal jugular veins are well-opacified. No pathologically enlarged or necrotic cervical lymph nodes. No discreteenhancing neck mass, fluid collection or acute inflammatory changes. Themarkers denoting the palpable abnormalities overlie the external jugularveins. No acute abnormality the visualized lung apices. IMPRESSION: 1. Nonspecific 1.1 cm well-circumscribed hypodense lesion within the leftvallecula, suspicious for the mucus retention cyst. A cystic neoplasmcannot be excluded. Recommend nonurgent ENT consultation and directvisualization. 2. No pathologically enlarged or necrotic cervical lymph nodes. Nodiscrete enhancing neck mass or acute inflammatory changes. The markersdenoting the palpable abnormality overlie the external jugular veins. 3. Moderate to severe multilevel degenerative changes of the cervicalspine. Referred By: MIRIAM PAIZ Interpreted By: Stevie Robles MD, 02/07/2025 2:05 PM us Miriam Paiz MD CT Final Resul t * CT CHEST W CON (02/06/2025 10:09 AM INFORMATION SYSTEMS PLANNER) Anatomical Region Laterality Modality Chest Computed Tomogra phy 02/15/2025 9:36 PM INFORMATION SYSTEMS PLANNER Impressions 02/15/2025 9:43 PM INFORMATION SYSTEMS PLANNER IMPRESSION: 1. No suspicious pulmonary lesion. 2. No evidence of mediastinal or hilar lymphadenopathy. 3. Probable left adrenal adenoma. Referred By: MIRIAM PAIZ Interpreted By: Colton Borges MD, 02/15/2025 9:36 PM Narrative 02/15/2025 9:43 PM INFORMATION SYSTEMS PLANNER [facility] [address] [place] [address] EXAMINATION: CT CHEST WITH CONTRAST EXAM DATE/TIME: 12/30/2024 9:30 AM REASON FOR EXAM: mass of soft tissue neck Dysphasia. COMPARISON: None TECHNIQUE: Computed tomography was performed of the chest after the injection of 80 cc of Isovue-370. A dose lowering technique was used for this procedure, which may include, but is not limited to, dose reduction technique, automated exposure control, iterative reconstruction, ALARA (As Low As Reasonably Achievable), or Image Gently techniques. FINDINGS: On lung windows, no suspicious pulmonary lesion, pneumothorax, or pleural effusion.. Calcified granuloma in left upper lobe On soft tissue windows, no axillary or supraclavicular lymphadenopathy. On mediastinal windows, no evidence of hilar or mediastinal lymphadenopathy. Heart size normal. No pericardial effusion.. Calcified left hilar lymph nodes. Limited evaluation of the upper abdomen demonstrates no acute abnormality.. Low-density 2.2 cm probable left adrenal adenoma. Hounsfield unit of 5.9 On bone windows, no suspicious skeletal lesion or acute compression fracture deformity.. Moderate degenerative change of thoracic spine. Kyphosis Procedure Note Colton Borges MD - 02/15/2025 [facility] [address] [place] [address] EXAMINATION: CT CHEST WITH CONTRAST EXAM DATE/TIME: 12/30/2024 9:30 AM REASON FOR EXAM: mass of soft tissue neck Dysphasia. COMPARISON: None TECHNIQUE: Computed tomography was performed of the chest after theinjection of 80 cc of Isovue-370. A dose lowering technique was used for this procedure, which may include,but is not limited to, dose reduction technique, automated exposurecontrol, iterative reconstruction, ALARA (As Low As ReasonablyAchievable), or Image Gently techniques. FINDINGS: On lung windows, no suspicious pulmonary lesion, pneumothorax, or pleuraleffusion.. Calcified granuloma in left upper lobe On soft tissue windows, no axillary or supraclavicular lymphadenopathy. On mediastinal windows, no evidence of hilar or mediastinallymphadenopathy. Heart size normal. No pericardial effusion.. Calcified left hilar lymph nodes. Limited evaluation of the upper abdomen demonstrates no acuteabnormality.. Low-density 2.2 cm probable left adrenal adenoma. Hounsfield unit of5.9 On bone windows, no suspicious skeletal lesion or acute compressionfracture deformity.. Moderate degenerative change of thoracic spine.Kyphosis IMPRESSION: 1. No suspicious pulmonary lesion. 2. No evidence of mediastinal or hilar lymphadenopathy. 3. Probable left adrenal adenoma. Referred By: MIRIAM PAIZ Interpreted By: Colton Borges MD, 02/15/2025 9:36 [address] Paiz MD CT Final Resul t * UREA NITROGEN, BLOOD (BUN) QUANT (12/27/2024 1:08 PM CDT) BUN 11 7 - 18 MG/DL 12/27/2024 1:39 PM CDT [facility] 12/27/2024 1:08 PM CDT Miriam Paiz MD LABORATORY Final Resul t Performing Organization Address [facility] de Phone Number [facility] [address] [place] [address], [place] [phone] * (ABNORMAL) CREATININE (12/27/2024 1:08 PM CDT) CREATININE S/P/B 0.97 0.55 - 1.02 MG/DL 12/27/2024 1:39 PM CDT [facility] GFR ESTIMATE 66(L) >90 ML/MIN/1.7 3 M2 12/27/2024 1:39 PM CDT [facility] Comment: NOTE: eGFR is not calculated for patients <18 years of age. This is an estimated GFR calculation using the new CKD EPI creatinine equation without race and so does not require a correction factor for race. This estimated GFR should not be used for calculating drug doses. 12/27/2024 1:08 PM CDT us Miriam Paiz MD LABORATORY Final Resul t [facility] [address] [place] [address], * MG SCREENING W ASUNCION JOSE ANGEL DIGI (12/08/2024 1:58 PM CDT) Anatomical Region Laterality Modality Breast Bilateral Mammography 12/16/2024 5:05 PM CDT Impressions 12/16/2024 5:12 PM CDT ===== IMPRESSION: ===== 1. Stable mammographic appearance with no new findings to suggest malignancy in either breast. Assessment: ACR BI-RADS 2 - BENIGN FINDING(S) Recommendation: 1:Routine Screening Bilateral Comments: Ordered By: MIRIAM PAIZ Interpreted By: Lizzette Borges, 12/16/2024 5:05 PM Narrative 12/16/2024 5:12 PM CDT [facility] [address] [place] [address] EXAMINATION: Digital bilateral screening mammogram with 3-D tomosynthesis EXAM DATE/TIME: 12/08/2024 1:22 PM REASON FOR EXAM: Screening Breast carcinoma in maternal aunt in her 60s COMPARISON: 06/03/2022. 09/08/2023 Technique: Digital screening mammography of both breasts was performed in addition to 3-D Tomosynthesis technique. This study was read with the assistance of a computer-aided detection system. Tissue density: There are scattered areas of fibroglandular density. Findings: There is no new focal asymmetry, dominant mass lesion, area of skin thickening, or cluster of suspicious appearing calcifications in either breast to suggest malignancy. Similar appearance to slightly asymmetric tissue within the 12:00 position of the right breast. Middle depth. us Miriam Paiz MD MAMMO Final Resul t * Cytopath Cerv/Vag Thin Layer (11/15/2021 12:00 AM CDT) COPATH REPORT [facility] [address] [place], [place] [address] [phone] Department of Pathology Pathology Report Gynecological Cytology Report Patient Name: SHAMEKA LAWSON : 1960 (Age: 61) Location: [facility] Gender: F Collected Date: 11/15/[address] [facility] Rec #: [id number] Date Received: 11/18/2021 Date Reported: 11/19/2021 Provider: MIRIAM PAIZ MD Copy To: fax; [phone] Final Cytologic Diagnosis Satisfactory for evaluation. Endocervical component present. Negative for Intraepithelial Lesion or Malignancy. Electronically Signed Out By Tony Savage Source of Specimen(s) Cervical, Thin Prep Clinical History Last Pap 11/10/2017. Normal Not on HRT z12.4 Date of Last Menstrual Period: post menopausal Billing Fee Code(s): A: [address] [facility] () [facility] 11/15/2021 11/18/2021 1:3 5 PM CDT Comment:Cervical, Thin Prep us Miriam Paiz MD PATHOLOGY/CYTOLOGY ORDERABL ES Final Result [facility] () [facility] [address] [place] [address], from Last 3 Months or Most Recently Relevant to Health Maintenance Insurance Care Teams Safe Expert Relationship Specialty Start Date End Date Miriam Paiz MD [address] [place] [address] PCP - General EMERGENCY MEDICINE 08/16/21
--- OUTSIDE RECORDS SUMMARY | 2025-02-20 13:56 | XMS_ITS | Encounter Summary ---
Author Organization [facility] Address [address] [place] [place] [address] Phone Care Team Providers Care Industrial Ecologist Name Role Phone Isabella Taylor MD Primary Care Provider [phone] Encounter Details Date Type Department Care Team (Late st Contact Info) Description 01/23/2025 Telephone [facility] [address] [place], [place] [phone] Isabella Taylor MD [address] [place], [place] Social History Tobacco Use Types Packs/Day Years Used Date Smoking Tobacco: Every Day Cigarettes Smokeless Tobacco: Never Alcohol Use Standard Drinks/Week Comments Never 0 (1 standard drink = 0.6 oz pur e alcohol) [facility] Utilities Answer Date Recorded In the past 12 months has [employer], gas, oil, or water [employer] threatened to shut off services in your home? No 05/02/2024 Social Connection and Isolation Panel Answer Date Recorded In a typical week, how many times do you talk on the phone with family, friends, or neighbors? More than three times a week 05/02/2024 How often do you get togethe r with friends or relatives? Never 05/02/2024 Attends [employer] Not on file 05/02 Do you belong to any clubs o r organizations such as druze groups, unions, fraternal or athletic groups, or [...] Total Score - Questions 1-9 0 12/29 [facility] - Occupational Stress Questionnaire Answer Date [...] any time in the past 12 m [facility], were you homeless or living in a intermediate (including now)? No 05/02/2024 AUDIT-C Answer Date [...] Sex Assigned at Female 04/20/2024 3:40 PM [employer] Legal Sex Female 10:47 AM CDT Gender Identity Female 12/06/2024 2:59 PM CDT Sexual Orientation Not on file documented as of this encounter Functional Status * BP Answer Date of Assessment Author 150/78 01/24/2025 10:41 AM CDT Isabella Taylor MD * Temp Answer Date of Assessment Author 98.6 01/24/2025 10:07 AM CDT Estephanie Arnold LPN * Pulse Answer Date of Assessment Author 99 01/24/2025 10:07 AM CDT Estephanie Arnold LPN * Resp Answer Date of Assessment Author 20 01/24/2025 10:07 AM CHARLENET Estephanie Arnold LPN * SpO2 Answer Date of Assessment Author 98 01/24/2025 10:07 AM CDT Estephanie Arnold LPN * Question Answer Date of Assessment Author Little interest or pleasure in doing things Not at all 01/24/2025 10:00 AM Estephanie Leggett LPN Feeling down, depressed, or hopeless Not at all 01/24/2025 10:00 AM CDT Jacob Walter LPN * Initial Score Answer Date of Assessment Author 0 01/24/2025 10:00 AM CHARLENET Estephanie Arnold LPN * AUDIT-C Score Answer Date of Assessment Author 0 01/24/2025 10:08 AM Estephanie Salcedo LPN * Alcohol Use Question Answer Date of Assessment Author Q1: How often do you have a drink containing alcohol? Never 01/24/2025 10:08 AM Jacob Leggett LPN Q2: How many drinks containing alcohol do you have on a typical day when you are drinking? Patient does not drink 01/24/2025 10:08 AM Estephanie Leggett LPN Q3: How often do you have six or more drinks on one occasion? Never 01/24/2025 10:08 AM Jacob Leggett LPN * Question Answer Date of Assessment Author Little interest or pleasure in doing things Not at all 01/24/2025 10:00 AM Estephanei Leggett LPN Feeling down, depressed, or hopeless Not at all 01/24/2025 10:00 AM Jacob Leggett LPN * Initial Score Answer Date of Assessment Author 0 01/24/2025 10:00 AM Estephanie Salcedo LPN * Over the past 2 weeks, how often have you been bothered by any of the following problems? Question Answer Date of Assessment Author Patient Health Questionnaire-2 Score 0 01/24/2025 10:00 AM Isabela Leggett LPN * Over the last 2 weeks, how often have you been bothered by any of the following problems? Question Answer Date of Assessment Author Feeling nervous, anxious, or on edge 0 01/24/2025 10:00 AM Jacob Leggett LPN Not being able to stop or control worrying 0 01/24/2025 10:00 AM Jacob Leggett LPN Worrying too much about different things 0 01/24/2025 10:00 AM Jacob Leggett LPN Trouble relaxing 0 01/24/2025 10:00 AM Estephanie Leggett LPN Being so restless that it is hard to sit still 0 01/24/2025 10:00 AM Jacob Leggett LPN Becoming easily annoyed or irritable 0 01/24/2025 10:00 AM CHARLENET Jacob Walter LPN Feeling afraid as if something awful might happen 0 01/24/2025 10:00 AM CHARLENET Estephanie Aguilar LPN KEN-7 Total Score 0 01/24/2025 10:00 AM CHARLENET Estephanie Walter LPN * AUDIT-C Score Answer Date of Assessment Author 0 01/24/2025 10:08 AM CHARLENET Estephanie Arnold LPN * Alcohol Use Question Answer Date of Assessment Author Q1: How often do you have a drink containing alcohol? Never 01/24/2025 10:08 AM Jacob Leggett LPN Q2: How many drinks containing alcohol do you have on a typical day when you are drinking? Patient does not drink 01/24/2025 10:08 AM Estephanie Leggett LPN Q3: How often do you have six or more drinks on one occasion? Never 01/24/2025 10:08 AM Jacob Leggett LPN documented as of this encounter Mental Status * BP Answer Entry Date Author 150/78 01/24/2025 10:41 AM CDT Isabella Taylor MD * Temp Answer Entry Date Author 98.6 01/24/2025 10:07 AM CDT Estephanie Arnold LPN * Pulse Answer Entry Date Author 99 01/24/2025 10:07 AM CHARLENET Estephanie Arnold LPN * SpO2 Answer Entry Date Author 98 01/24/2025 10:07 AM CHARLENET Estephanie Arnold LPN * Question Answer Entry Date Author Little interest or pleasure in doing things Not at all 01/24/2025 10:00 AM Jacbo Leggett LPN Feeling down, depressed, or hopeless Not at all 01/24/2025 10:00 AM Jacob Leggett LPN * Initial Score Answer Entry Date Author 0 01/24/2025 10:00 AM Estephanie Salcedo LPN documented in this encounter Plan of Treatment Upcoming Encounters Date Type Department Care Team (Late st Contact Info) Description 05/04/2025 1:00 PM [employer] WORK[employer] Office Visit [facility] [address] [place], [place] [phone] Isabella Taylor MD [address] [place], [place] documented as of this encounter Visit Diagnoses Not on filedocumented in this encounter Additional Health Concerns Assessment Noted Time PHQ-9 Depression Total Score: 0 12/02/19 25 2:00 PM CDT documented as of this encounter Care Teams Industrial Ecologist Relationship Specialty Start Date End Date Isabella Taylor MD [facility] [place], [place] PCP - General Emergency Medicine 09/17/23 documented as of this encounter
== END 2025-02-20 13:56 | disposition home or self-care (01) ==
PROVIDERS: Emergency Provider Nurse Practitioner
DX: B37.0 Candidal stomatitis (principal); I10 Essential (primary) hypertension; E78.00 Pure hypercholesterolemia, unspecified
CPT/HCPCS: 99203; G0463